=== PATIENT | female | born 1955 | race Native Hawaiian/Other Pacific Islander ===

== ENCOUNTER 2017-03-26 10:13 | Outpatient (CLI) | payer OTHER, BC ==
[~2017-03-26 10:13] MED LIST: ADDERALL10 MG OR; ALPR0.2566 PO; ARTHROTEC 75 PO; CAND32TA PO; FIORICET OR; FLECTOR1.3 % TD; HYDR25TA60 PO; KETOROLAC15 MG/ML IJ; LEVO0.1224 PO; LOVAZA1 GM OR; NASONEX50 MCG/AC; SIMV20TA2 PO; SINGULAIR10 MG OR; SKELAXIN800 MG OR; STRATTERA10 MG OR; STRATTERA18 MG OR
== END 2017-03-26 11:30 | disposition home or self-care (01) ==
LOC: MAMMO 10:13
DX: Z12.31 Encounter for screening mammogram for malignant neoplasm of breast (principal)
CPT/HCPCS: G0202-TC

== ENCOUNTER 2017-04-19 11:30 | Outpatient (CLI) | payer OTHER, BC | END 2017-04-19 17:55 | disposition home or self-care (01) | LOC: LABW 11:30 | DX: M25.551 Pain in right hip (principal); M25.552 Pain in left hip; R10.2 Pelvic and perineal pain; M54.5 Low back pain; R79.82 Elevated C-reactive protein (CRP) | CPT/HCPCS: 36415; 82306; 83036; 86140 ==

== ENCOUNTER 2017-07-11 13:34 | Outpatient (CLI) | payer OTHER, BC | END 2017-07-11 19:09 | disposition home or self-care (01) | LOC: LABW 13:34 | DX: M06.4 Inflammatory polyarthropathy (principal); M19.041 Primary osteoarthritis, right hand; M19.042 Primary osteoarthritis, left hand; M47.816 Spondylosis without myelopathy or radiculopathy, lumbar region; M70.61 Trochanteric bursitis, right hip | CPT/HCPCS: 36415; 81374; 82784; 85651; 86039; 86140; 86200; 86430 ==

== ENCOUNTER 2017-09-03 08:26 | Outpatient (CLI) | payer OTHER, BC ==
[2017-09-03 08:52] LABS: PLATELET COUNT 279 K/uL (152-353)
[2017-09-03 11:21] LABS: POTASSIUM 3.3 mmol/L (3.6-5.2)
== END 2017-09-03 19:03 | disposition home or self-care (01) ==
LOC: LABW 08:26
DX: R94.6 Abnormal results of thyroid function studies (principal); Z79.899 Other long term (current) drug therapy; Z51.81 Encounter for therapeutic drug level monitoring; I10 Essential (primary) hypertension; E78.4 Other hyperlipidemia; R53.83 Other fatigue
CPT/HCPCS: 36415; 80053; 80061; 84436; 84439; 84443; 84481; 85027; 85651

== ENCOUNTER 2017-10-10 11:57 | Day surgery (SDC) | payer OTHER, BC | END 2017-10-10 16:10 | disposition home or self-care (01) | LOC: OR 11:57 | PROC: 0DB38ZZ Excision of Lower Esophagus, Via Natural or Artificial Opening Endoscopic (ICD-10-PCS; principal; 2017-10-10) | PROC: 0DB88ZZ Excision of Small Intestine, Via Natural or Artificial Opening Endoscopic (ICD-10-PCS; 2017-10-10) | PROC: 0DB68ZZ Excision of Stomach, Via Natural or Artificial Opening Endoscopic (ICD-10-PCS; 2017-10-10) | DX: K21.0 Gastro-esophageal reflux disease with esophagitis (principal); K29.00 Acute gastritis without bleeding; R10.13 Epigastric pain; Z80.0 Family history of malignant neoplasm of digestive organs; R11.0 Nausea | CPT/HCPCS: J1100; J2001; J2405; J2704; J2765; S0028 ==

== ENCOUNTER 2017-11-25 14:54 | Emergency (ER) | payer OTHER, BC ==
[~2017-11-25] VITALS: Ht 157.5 cm; Wt 99.8 kg
== END 2017-11-25 16:54 | disposition home or self-care (01) ==
LOC: ED 14:54
DX: S76.011A Strain of muscle, fascia and tendon of right hip, initial encounter (principal); X50.1XXA Overexertion from prolonged static or awkward postures, initial encounter; Y92.239 Unspecified place in hospital as the place of occurrence of the external cause
CPT/HCPCS: 99282

== ENCOUNTER 2018-06-11 12:58 | Outpatient (CLI) | payer OTHER | END 2018-06-11 23:54 | disposition home or self-care (01) | LOC: MRI 12:58 | DX: M25.551 Pain in right hip (principal); M70.61 Trochanteric bursitis, right hip; M16.11 Unilateral primary osteoarthritis, right hip; S73.101A Unspecified sprain of right hip, initial encounter ==

== ENCOUNTER 2018-07-30 11:35 | Outpatient (CLI) | payer OTHER, BC ==
[2018-07-30 12:04] LABS: PLATELET COUNT 244 K/uL (152-353)
== END 2018-07-30 22:43 | disposition home or self-care (01) ==
LOC: LABW 11:35
PROVIDERS: Nurse Practitioner Family
DX: Z13.9 Encounter for screening, unspecified (principal); R68.82 Decreased libido
CPT/HCPCS: 36415; 80053; 80061; 80074; 82306; 82607; 82670; 83001; 84402; 84436; 84443; 84481; 85027; 86376

== ENCOUNTER 2018-08-12 09:02 | Outpatient (CLI) | payer OTHER, BC | END 2018-08-12 19:56 | disposition home or self-care (01) | LOC: MAMMO 09:02 | DX: Z12.31 Encounter for screening mammogram for malignant neoplasm of breast (principal) ==

== ENCOUNTER 2018-10-03 12:13 | Outpatient (CLI) | payer OTHER, BC ==
[2018-10-03 13:38] LABS: PLATELET COUNT 331 K/uL (152-353)
[2018-10-03 13:45] LABS: POTASSIUM 3.7 mmol/L (3.6-5.2)
== END 2018-10-03 21:45 | disposition home or self-care (01) ==
LOC: LABW 12:13
PROVIDERS: Family Medicine
DX: R53.83 Other fatigue (principal)
CPT/HCPCS: 36415; 80053; 80061; 82306; 82607; 82670; 83001; 84402; 84403; 84436; 84443; 84481; 85027; 86376

== ENCOUNTER 2018-11-12 08:29 | Outpatient (CLI) | payer OTHER, BC ==
[2018-11-12 13:03] LABS: PLATELET COUNT 290 K/uL (152-353)
[2018-11-12 13:35] LABS: PARTIAL THROMBOPLASTIN TIME 26.5 SECONDS (24.5-33.6)
== END 2018-11-12 19:03 | disposition home or self-care (01) ==
LOC: LABW 08:29
PROVIDERS: Orthopaedic Surgery
DX: Z01.810 Encounter for preprocedural cardiovascular examination (principal); Z01.811 Encounter for preprocedural respiratory examination; Z01.812 Encounter for preprocedural laboratory examination; Z51.81 Encounter for therapeutic drug level monitoring; Z79.899 Other long term (current) drug therapy; M16.12 Unilateral primary osteoarthritis, left hip
CPT/HCPCS: 36415; 80053; 81000; 82306; 83036; 84134; 84466; 85027; 85610; 85730; 87070; 93005

== ENCOUNTER 2019-01-29 16:49 | Outpatient (CLI) | payer OTHER, BC | END 2019-01-29 23:48 | disposition home or self-care (01) | LOC: LABW 16:49 | DX: M15.1 Heberden's nodes (with arthropathy) (principal) | CPT/HCPCS: 36415; 84550; 85651; 86038; 86431 ==

== ENCOUNTER 2019-02-21 13:43 | Outpatient (CLI) | payer OTHER, BC | END 2019-02-21 23:22 | disposition home or self-care (01) | LOC: RESP 13:43 | DX: R00.2 Palpitations (principal) | CPT/HCPCS: 93225 ==

== ENCOUNTER 2019-05-06 08:09 | Outpatient (CLI) | payer OTHER, BC ==
[~2019-05-06] VITALS: Ht 180.3 cm; Wt 107.5 kg
== END 2019-05-06 22:24 | disposition home or self-care (01) ==
LOC: NM 08:09
DX: R00.2 Palpitations (principal); I10 Essential (primary) hypertension; R94.2 Abnormal results of pulmonary function studies
CPT/HCPCS: 93005; 93306; A9500; J2785

== ENCOUNTER 2019-07-01 14:27 | Outpatient (CLI) | payer OTHER, BC | END 2019-07-01 23:20 | disposition home or self-care (01) | LOC: RAD 14:27 | DX: M79.641 Pain in right hand (principal); M79.642 Pain in left hand ==

== ENCOUNTER 2019-09-03 08:36 | Outpatient (CLI) | payer OTHER, BC ==
[2019-09-03 09:49] LABS: PLATELET COUNT 241 K/uL (152-353)
[2019-09-03 10:06] LABS: POTASSIUM 3.9 mmol/L (3.6-5.2); SODIUM 140 mmol/L (136-145)
== END 2019-09-03 20:09 | disposition home or self-care (01) ==
LOC: US 08:36
PROVIDERS: Obstetrics & Gynecology
DX: Z13.820 Encounter for screening for osteoporosis (principal); E03.8 Other specified hypothyroidism; N95.0 Postmenopausal bleeding; R53.83 Other fatigue; R63.5 Abnormal weight gain; R10.2 Pelvic and perineal pain; N95.8 Other specified menopausal and perimenopausal disorders
CPT/HCPCS: 36415; 80053; 82306; 82607; 82746; 84403; 84439; 84443; 84479; 85027

== ENCOUNTER 2019-11-11 10:15 | Outpatient (CLI) | payer OTHER, BC ==
[2019-11-11 10:33] LABS: POTASSIUM 3.6 mmol/L (3.6-5.2); SODIUM 140 mmol/L (136-145)
[2019-11-11 10:40] LABS: PLATELET COUNT 249 K/uL (152-353)
== END 2019-11-11 20:09 | disposition home or self-care (01) ==
LOC: LABW 10:15
PROVIDERS: Nurse Practitioner Family
DX: I47.1 Supraventricular tachycardia (principal)
CPT/HCPCS: 36415; 80053; 82550; 82553; 84484; 85027

== ENCOUNTER 2020-01-20 13:13 | Outpatient (CLI) | payer OTHER, BC ==
[2020-01-20 13:31] LABS: PLATELET COUNT 261 K/uL (152-353)
== END 2020-01-20 19:11 | disposition home or self-care (01) ==
LOC: RAD 13:13
PROVIDERS: Nurse Practitioner Family
DX: J20.8 Acute bronchitis due to other specified organisms (principal)
CPT/HCPCS: 36415; 85027; 87502; 87651

== ENCOUNTER 2022-01-16 13:06 | Outpatient (CLI) | payer OTHER | END 2022-01-16 19:24 | disposition home or self-care (01) | LOC: MAMMO 13:06 | PROVIDERS: ATTEND Obstetrics & Gynecology | DX: Z12.31 Encounter for screening mammogram for malignant neoplasm of breast (principal) ==

== ENCOUNTER 2023-03-19 11:09 | Outpatient (CLI) | payer OTHER | END 2023-03-19 19:24 | disposition home or self-care (01) | LOC: US 11:09 | PROVIDERS: ATTEND Nurse Practitioner Family | DX: R22.42 Localized swelling, mass and lump, left lower limb (principal) ==

== ENCOUNTER 2023-08-21 15:40 | Outpatient (CLI) | payer OTHER ==
[2023-08-21 16:28] LABS: POTASSIUM 3.8 mmol/L (3.6-5.2)
== END 2023-08-21 19:13 | disposition home or self-care (01) ==
LOC: RESP 15:40
PROVIDERS: ATTEND Nurse Practitioner Family
DX: I47.19 Other supraventricular tachycardia (principal)
CPT/HCPCS: 36415; 80048; 82550; 84484; 93005